=== PATIENT | male | born 1990 | race Caucasian/White ===

== ENCOUNTER 2020-06-14 13:15 | Emergency (ER) | payer MEDICAID ==
[~2020-06-14] VITALS: Ht 180.3 cm; Wt 88.5 kg
[2020-06-14 13:29] VITALS: Ht 180.3 cm; Wt 88.5 kg
[2020-06-14 14:41] VITALS: BP 126/73
[2020-06-15] MEDS ORDERED: BACTRIM DS1 TAB PO (12:07)
[2020-06-15] MEDS ORDERED: IBU600 M2 PO (12:07)
[2020-06-15] MEDS ORDERED: CEPHALEXIN500 MG PO (12:07)
== END 2020-06-14 14:42 | disposition left against medical advice (07) ==
LOC: ED 13:15
DX: L03.114 Cellulitis of left upper limb (principal)

== ENCOUNTER 2020-06-15 09:14 | Emergency (ER) | payer MEDICAID ==
[~2020-06-15] VITALS: Ht 154.9 cm; Wt 88.0 kg
[2020-06-15 09:23] VITALS: Ht 154.9 cm; Wt 88.0 kg
[2020-06-15 10:15] LABS: BASOPHIL % 0.7 % (0.2-1.5); PLATELET COUNT 280 x10^3mcL (152-348); RED CELL DISTRIBUTION WIDTH 13.9 % (12.1-16.2)
[2020-06-15 10:42] LABS: CALCIUM 8.9 mg/dL (8.5-10.1); CARBON DIOXIDE 28.3 mmol/L (21-32); CHLORIDE SERUM 105 mmol/L (98-107); CREATININE SERUM 0.7 mg/dL (0.7-1.3); GFR1 > 60 mL/min; GLUCOSE SERUM 107 mg/dL (74-106); POTASSIUM SERUM 3.9 mmol/L (3.5-5.1); SODIUM SERUM 140 mmol/L (136-145)
[2020-06-15 10:46] LABS: ALKALINE PHOSPHATASE 99 U/L (46-116); ALT/SGPT 56 U/L (16-63); AST/SGOT 30 U/L (15-37); BILIRUBIN TOTAL 0.3 mg/dL (0.20-1.00); TOTAL PROTEIN, SERUM 6.7 g/dL (6.4-8.2)
[2020-06-15 10:52] LABS: ALBUMIN 3.1 g/dL (3.4-5.0)
[2020-06-15] MEDS ORDERED: CEPHALEXIN500 MG PO (12:07)
[2020-06-15] MEDS ORDERED: BACTRIM DS1 TAB PO (12:07)
[2020-06-15] MEDS ORDERED: IBU600 M2 PO (12:07)
[2020-06-15 13:18] VITALS: BP 112/71
== END 2020-06-15 13:18 | disposition home or self-care (01) ==
LOC: ED 09:14
PROVIDERS: Emergency Medicine
DX: S62.635A Displaced fracture of distal phalanx of left ring finger, initial encounter for closed fracture (principal); L03.114 Cellulitis of left upper limb; F17.210 Nicotine dependence, cigarettes, uncomplicated; Z71.6 Tobacco abuse counseling; X58.XXXA Exposure to other specified factors, initial encounter; Y93.89 Activity, other specified; Y92.89 Other specified places as the place of occurrence of the external cause; Y99.8 Other external cause status
CPT/HCPCS: 99406; J0696; J3370; J7040; J7050; J7060